=== PATIENT | female | born 1985 | race Hispanic/Latino ===

== ENCOUNTER → 2022-08-29 | Outpatient (CLI) | payer BC | LOC: WCC 15:03 | PROVIDERS: ATTEND Family Medicine Adult Medicine | DX: T81.30XA Disruption of wound, unspecified, initial encounter (principal); T81.89XA Other complications of procedures, not elsewhere classified, initial encounter ==

== ENCOUNTER → 2022-09-04 | Outpatient (CLI) | payer BC ==
[2022-09-04 13:19] LABS: BASOPHILS % 0.4 % (0.0-1.0); EOSINOPHILS # (AUTO) 0.2 (0.0-0.4); EOSINOPHILS % 2.6 % (0.0-6.0); HEMATOCRIT 40.3 % (34.2-44.1); HEMOGLOBIN 12.6 g/dL (12.0-16.0); LYMPHOCYTES # (AUTO) 2.9 (1.0-3.2); LYMPHOCYTES % 34.8 % (18.0-39.1); MEAN CORPUSCULAR HEMOGLOBIN 25.7 pg (28-32); MEAN CORPUSCULAR HGB CONC 31.3 g/dL (31-35); MEAN CORPUSCULAR VOLUME 82.1 fL (81-99); MONOCYTES # (AUTO) 0.5 (0.2-0.8); MONOCYTES % 6.3 % (4.4-11.3); NEUTROPHILS # (AUTO) 4.7 (2.1-6.9); NEUTROPHILS % 55.5 % (38.7-80.0); PLATELET COUNT 311 x10e3/uL (140-360); RED BLOOD COUNT 4.91 x10e6/uL (3.6-5.1); RED CELL DISTRIBUTION WIDTH 14.6 % (11.7-14.4)
[2022-09-04 13:43] LABS: ALBUMIN 3.5 g/dL (3.5-5.0); ANION GAP 12.8 mmol/L (8-16); CALCIUM 9.3 mg/dL (8.4-10.2); CREATININE, SERUM 0.69 mg/dL (0.57-1.11); POTASSIUM 3.8 mmol/L (3.5-5.1)
== END ==
LOC: WCC 09:43
PROVIDERS: ATTEND Family Medicine Adult Medicine
DX: T81.30XA Disruption of wound, unspecified, initial encounter (principal); T81.89XA Other complications of procedures, not elsewhere classified, initial encounter
CPT/HCPCS: 36415; 80053; 83036; 84134; 85025

== ENCOUNTER 2022-09-12 19:11 | Inpatient (IN) | payer OTHER, BC ==
[~2022-09-12] VITALS: Ht 157.5 cm; Wt 84.4 kg
[2022-09-12 19:59] LABS: BASOPHILS % 0.3 % (0.0-1.0); EOSINOPHILS # (AUTO) 0.3 (0.0-0.4); EOSINOPHILS % 3.5 % (0.0-6.0); HEMATOCRIT 38.7 % (34.2-44.1); HEMOGLOBIN 12.4 g/dL (12.0-16.0); LYMPHOCYTES # (AUTO) 2.9 (1.0-3.2); LYMPHOCYTES % 37.9 % (18.0-39.1); MEAN CORPUSCULAR HEMOGLOBIN 25.6 pg (28-32); MEAN CORPUSCULAR VOLUME 79.8 fL (81-99); MONOCYTES # (AUTO) 0.4 (0.2-0.8); MONOCYTES % 5.6 % (4.4-11.3); NEUTROPHILS % 52.4 % (38.7-80.0); PLATELET COUNT 356 x10e3/uL (140-360); RED BLOOD COUNT 4.85 x10e6/uL (3.6-5.1); RED CELL DISTRIBUTION WIDTH 14.1 % (11.7-14.4)
[2022-09-12 20:16] LABS: ALBUMIN 3.3 g/dL (3.5-5.0); ALBUMIN/GLOBULIN RATIO 0.9 (0.8-2.0); ANION GAP 15.7 mmol/L (8-16); CALCIUM 8.7 mg/dL (8.4-10.2); CREATININE, SERUM 0.82 mg/dL (0.57-1.11); POTASSIUM 3.7 mmol/L (3.5-5.1)
[2022-09-12] MEDS ORDERED: SODIUM CHLORIDE 0.9% 1000ML 1,000 ML IV ONE (20:30)
[2022-09-12] MEDS: Vancomycin IV 1 GM in SODIUM CHLORIDE 0.9% 250ML 250 ML IV SCH (20:44)
[2022-09-12] MEDS ORDERED: DEXTROSE 50% SYRINGE 50 ML IV PRN (21:00)
[2022-09-12] MEDS: INSULIN REGULAR, HUMAN 100 UNIT/1 ML SQ SCH (21:45)
[2022-09-12] MEDS: SODIUM CHLORIDE 0.9% 1000ML 1,000 ML IV SCH (21:46)
[2022-09-12] MEDS: ONDANSETRON HCL INJ 2MG/ML 2ML 2 MG/ML VIAL IV PRN (21:50)
[2022-09-12] MEDS: Morphine 4mg INJECTION 4 MG/ML INJ IV PRN (21:50)
[2022-09-12 23:58] VITALS: BP 151/80; PULSE 100; RESP 16; O2SAT 100
[2022-09-13] VITALS (9 sets, daily range): BP systolic 110–151; BP diastolic 69–80; PULSE 80–110; RESP 16–20; TEMP 97.8–98.9; O2SAT 99–100
[2022-09-13] MEDS ORDERED: MOUNJARO5 MG/0.5 M SQ (00:13)
[2022-09-13] MEDS: SODIUM CHLORIDE 0.9% 1000ML 1,000 ML IV SCH ×3 (02:19→21:05)
[2022-09-13] MEDS: Morphine 4mg INJECTION 4 MG/ML INJ IV PRN ×5 (02:19→21:10)
[2022-09-13] MEDS: ONDANSETRON HCL INJ 2MG/ML 2ML 2 MG/ML VIAL IV PRN ×2 (02:19→07:10)
[2022-09-13 05:43] LABS: BASOPHILS % 0.3 % (0.0-1.0); EOSINOPHILS # (AUTO) 0.1 (0.0-0.4); EOSINOPHILS % 1.4 % (0.0-6.0); HEMATOCRIT 34.7 % (34.2-44.1); HEMOGLOBIN 11.1 g/dL (12.0-16.0); LYMPHOCYTES # (AUTO) 1.8 (1.0-3.2); LYMPHOCYTES % 26.4 % (18.0-39.1); MEAN CORPUSCULAR HEMOGLOBIN 25.5 pg (28-32); MEAN CORPUSCULAR VOLUME 79.8 fL (81-99); MONOCYTES # (AUTO) 0.5 (0.2-0.8); MONOCYTES % 7.4 % (4.4-11.3); NEUTROPHILS # (AUTO) 4.3 (2.1-6.9); NEUTROPHILS % 64.3 % (38.7-80.0); PLATELET COUNT 290 x10e3/uL (140-360); RED BLOOD COUNT 4.35 x10e6/uL (3.6-5.1); RED CELL DISTRIBUTION WIDTH 14.2 % (11.7-14.4)
[2022-09-13 06:15] LABS: ALBUMIN 2.6 g/dL (3.5-5.0); ALBUMIN/GLOBULIN RATIO 0.8 (0.8-2.0); ANION GAP 10.7 mmol/L (8-16); CALCIUM 7.8 mg/dL (8.4-10.2); CREATININE, SERUM 0.66 mg/dL (0.57-1.11); POTASSIUM 3.7 mmol/L (3.5-5.1)
[2022-09-13] MEDS: INSULIN REGULAR, HUMAN 100 UNIT/1 ML SQ SCH ×4 (09:01→21:14)
[2022-09-13] MEDS: Vancomycin IV 1 GM in SODIUM CHLORIDE 0.9% 250ML 250 ML IV SCH ×2 (09:07→21:06)
[2022-09-13] MEDS: ACETAMINOPHEN 325 MG TAB PO PRN (09:19)
[2022-09-13 09:51] LABS: ALANINE AMINOTRANSFERASE 516 IU/L (0-55)
[2022-09-13] MEDS: MUPIROCIN 2% OINT 22 GM TUBE TOP SCH (21:29)
[2022-09-14] VITALS (9 sets, daily range): BP systolic 109–134; BP diastolic 66–83; PULSE 79–93; RESP 16–18; TEMP 97.5–98.8; O2SAT 96–100
[2022-09-14] MEDS: Morphine 4mg INJECTION 4 MG/ML INJ IV PRN ×6 (01:11→22:40)
[2022-09-14] MEDS: ACETAMINOPHEN 325 MG TAB PO PRN (07:32)
[2022-09-14] MEDS: SODIUM CHLORIDE 0.9% 1000ML 1,000 ML IV SCH (07:33)
[2022-09-14] MEDS: INSULIN REGULAR, HUMAN 100 UNIT/1 ML SQ SCH ×4 (08:13→21:37)
[2022-09-14 08:19] LABS: ALANINE AMINOTRANSFERASE 322 IU/L (0-55); ALBUMIN 2.6 g/dL (3.5-5.0); ALBUMIN/GLOBULIN RATIO 0.8 (0.8-2.0); ALKALINE PHOSPHATASE 123 IU/L (40-150); ANION GAP 10.9 mmol/L (8-16); BLOOD UREA NITROGEN < 5 mg/dL (7-26); CALCIUM 8.2 mg/dL (8.4-10.2); CARBON DIOXIDE 21 mmol/L (22-29); CHLORIDE 109 mmol/L (98-107); CREATININE, SERUM 0.66 mg/dL (0.57-1.11); GLUCOSE 167 mg/dL (74-118); POTASSIUM 3.9 mmol/L (3.5-5.1); SODIUM 137 mmol/L (136-145)
[2022-09-14 08:20] LABS: BUN/CREATININE RATIO 8 (6-25)
[2022-09-14] MEDS: ONDANSETRON HCL INJ 2MG/ML 2ML 2 MG/ML VIAL IV PRN ×3 (09:17→18:29)
[2022-09-14] MEDS: Vancomycin IV 1 GM in SODIUM CHLORIDE 0.9% 250ML 250 ML IV SCH ×2 (10:39→21:34)
[2022-09-14] MEDS ORDERED: KETOROLAC TROMETHAMINE 30 MG/ML VIAL IV SCH (12:00)
[2022-09-14] MEDS ORDERED: BISACODYL 5 MG TAB EC PO ONE (12:15)
[2022-09-14] MEDS: HYDROCODONE/APAP 5MG-325MG TAB PO PRN (16:37)
[2022-09-14] MEDS: ENOXAPARIN SOD INJ 40 MG/0.4 ML SYR SC SCH (18:31)
[2022-09-14] MEDS: MUPIROCIN 2% OINT 22 GM TUBE TOP SCH (21:35)
[2022-09-15] VITALS (7 sets, daily range): BP systolic 98–115; BP diastolic 68–77; PULSE 71–82; RESP 16–18; TEMP 97.7–98.8; O2SAT 97–99
[2022-09-15] MEDS: Morphine 4mg INJECTION 4 MG/ML INJ IV PRN ×6 (02:18→23:00)
[2022-09-15 07:00] LABS: BASOPHILS % 0.6 % (0.0-1.0); EOSINOPHILS # (AUTO) 0.4 (0.0-0.4); EOSINOPHILS % 6.3 % (0.0-6.0); HEMATOCRIT 37.5 % (34.2-44.1); HEMOGLOBIN 11.7 g/dL (12.0-16.0); LYMPHOCYTES # (AUTO) 2.7 (1.0-3.2); LYMPHOCYTES % 44.1 % (18.0-39.1); MEAN CORPUSCULAR HEMOGLOBIN 25.5 pg (28-32); MEAN CORPUSCULAR HGB CONC 31.2 g/dL (31-35); MEAN CORPUSCULAR VOLUME 81.9 fL (81-99); MONOCYTES # (AUTO) 0.4 (0.2-0.8); NEUTROPHILS # (AUTO) 2.6 (2.1-6.9); NEUTROPHILS % 41.7 % (38.7-80.0); PLATELET COUNT 339 x10e3/uL (140-360); RED BLOOD COUNT 4.58 x10e6/uL (3.6-5.1)
[2022-09-15] MEDS: INSULIN REGULAR, HUMAN 100 UNIT/1 ML SQ SCH ×5 (07:30→20:36)
[2022-09-15 07:47] LABS: ALBUMIN/GLOBULIN RATIO 0.9 (0.8-2.0); ANION GAP 14.8 mmol/L (8-16); CALCIUM 8.8 mg/dL (8.4-10.2); CREATININE, SERUM 0.69 mg/dL (0.57-1.11); POTASSIUM 3.8 mmol/L (3.5-5.1)
[2022-09-15] MEDS: DOCUSATE SODIUM 100 MG CAP PO SCH ×2 (08:31→16:55)
[2022-09-15] MEDS: Vancomycin IV 1 GM in SODIUM CHLORIDE 0.9% 250ML 250 ML IV SCH (08:31)
[2022-09-15] MEDS: HYDROCODONE/APAP 5MG-325MG TAB PO PRN ×2 (11:52→18:03)
[2022-09-15] MEDS ORDERED: IBUPROFEN 600 MG TAB PO PRN (12:00)
[2022-09-15] MEDS: ENOXAPARIN SOD INJ 40 MG/0.4 ML SYR SC SCH (16:56)
[2022-09-15] MEDS ORDERED: LEVOFLOXACIN 500 MG TAB PO SCH (20:30)
[2022-09-15] MEDS: MUPIROCIN 2% OINT 22 GM TUBE TOP SCH (20:36)
[2022-09-15] MEDS ORDERED: DIPHENHYDRAMINE HCL INJ 50 MG/ML VIAL IV PRN (23:15)
[2022-09-16] VITALS: BP 116/73; PULSE 80; RESP 19; TEMP 98.6; O2SAT 96
[2022-09-16] MEDS: HYDROCODONE/APAP 5MG-325MG TAB PO PRN ×2 (01:22→12:35)
[2022-09-16] MEDS: Morphine 4mg INJECTION 4 MG/ML INJ IV PRN ×3 (05:33→15:40)
[2022-09-16 07:44] VITALS: BP 117/78; PULSE 84; RESP 19; TEMP 98; O2SAT 100
[2022-09-16 08:20] VITALS: BP 117/78; PULSE 84; RESP 19; TEMP 98; O2SAT 100
[2022-09-16] MEDS ORDERED: DOXYCYCLINE HYCLATE TABLET 100 MG TAB PO SCH (09:00)
[2022-09-16] MEDS: INSULIN REGULAR, HUMAN 100 UNIT/1 ML SQ SCH ×3 (09:04→17:06)
[2022-09-16] MEDS: DOCUSATE SODIUM 100 MG CAP PO SCH ×2 (09:05→17:06)
[2022-09-16] MEDS: ONDANSETRON HCL INJ 2MG/ML 2ML 2 MG/ML VIAL IV PRN ×2 (10:03→15:40)
[2022-09-16 11:13] VITALS: BP 152/81; PULSE 85; RESP 16; TEMP 97.3; O2SAT 100
[2022-09-16] MEDS ORDERED: CEFDINIR 300 MG CAP PO SCH (12:15)
[2022-09-16] MEDS ORDERED: CEPHALEXIN 500 MG CAP PO ONE (13:30)
[2022-09-16] MEDS ORDERED: CEFDINIR300 MG PO (15:16)
[2022-09-16 15:18] VITALS: BP 115/78; PULSE 82; RESP 17; TEMP 99; O2SAT 100
[2022-09-16] MEDS: ENOXAPARIN SOD INJ 40 MG/0.4 ML SYR SC SCH (17:06)
[2022-09-16] MEDS ORDERED: ONDANSETRON HCL 4 MG ORAL DISINTEGRATING TAB PO PRN (17:30)
[2022-09-16] MEDS ORDERED: HYDROCODON-ACE1 EA11 PO (18:47)
== END 2022-09-16 18:35 | disposition home or self-care (01) | DRG 863 ==
LOC: ER 19:15 → ERHOLD 20:50 → MED/SURG3 23:46 → MED/SURG2 09-14 22:44
PROVIDERS: ADMIT Internal Medicine; ATTEND Internal Medicine
DX: T81.42XA Infection following a procedure, deep incisional surgical site, initial encounter (principal); T81.32XA Disruption of internal operation (surgical) wound, not elsewhere classified, initial encounter; N61.0 Mastitis without abscess; Z98.82 Breast implant status; Y83.4 Other reconstructive surgery as the cause of abnormal reaction of the patient, or of later complication, without mention of misadventure at the time of the procedure; Y92.89 Other specified places as the place of occurrence of the external cause; E11.9 Type 2 diabetes mellitus without complications; R94.5 Abnormal results of liver function studies; Z20.822 Contact with and (suspected) exposure to COVID-19; K59.00 Constipation, unspecified; Z83.3 Family history of diabetes mellitus
CPT/HCPCS: 36415; 76700; 80053; 80202; 82948; 83605; 84450; 84460; 85025; 87040; 96372; 99252; 99284; J1200; J1650; J1885; J2270; J2405; J2543; J7030; J7050

== ENCOUNTER → 2022-09-12 | Outpatient (CLI) | payer BC ==
[~2022-09-12] MED LIST: CEFDINIR300 MG PO; HYDROCODON-ACE1 EA11 PO; MOUNJARO5 MG/0.5 M SQ
== END ==
LOC: WCC 14:59
PROVIDERS: ATTEND Family Medicine Adult Medicine
DX: T81.30XA Disruption of wound, unspecified, initial encounter (principal); T81.89XA Other complications of procedures, not elsewhere classified, initial encounter
CPT/HCPCS: 87071; 87075; 87205